=== PATIENT | female | born 1980 | race Caucasian/White ===

== ENCOUNTER 2023-11-30 15:59 | Inpatient (IN) | payer OTHER ==
[2023-11-30 17:22] LABS: BASO % 0.2 % (0-2.0); EOS % 0.3 % (0-4.5); HEMATOCRIT 33.5 % (32.4-45.2); HEMOGLOBIN 11.5 GM/dL (10.7-15.3); LYMPH % 18.3 % (8-40); MCH 29.2 pg (25.7-33.7); MCHC 34.2 g/dl (32.0-36.0); MEAN CELL VOLUME 85.4 fl (80-96); MEAN PLT VOLUME 8.4 fl (7.5-11.1); MONO % 5.9 % (3.8-10.2); NEUT % 75.3 % (42.8-82.8); PLATELET COUNT 365 10^3/uL (134-434); RBC 3.92 M/mm3 (3.60-5.2); RDW 13.4 % (11.6-15.6); WHITE BLOOD COUNT 12.5 K/mm3 (4.0-10.0)
[2023-11-30 17:28] LABS: INR 0.94 (0.83-1.09); PROTHROMBIN TIME (PATIENT) 10.6 SEC (9.7-13.0)
[2023-11-30 17:31] LABS: ACTIVATED PTT 27.5 SECONDS (25.2-36.5)
[2023-11-30 17:40] LABS: POTASSIUM 3.8 mmol/L (3.5-5.1)
[2023-11-30 17:42] LABS: CALCIUM 9.4 mg/dL (8.5-10.1)
[2023-11-30 17:43] LABS: ALBUMIN 2.6 g/dl (3.4-5.0); BLOOD UREA NITROGEN 9.8 mg/dL (7-18)
[2023-11-30 17:46] LABS: CREATININE 0.4 mg/dL (0.55-1.3); URIC ACID 4.3 mg/dL (2.6-7.2)
[2023-11-30 17:48] LABS: BILIRUBIN,TOTAL 0.2 mg/dL (0.2-1); TOT PROT 6.6 g/dl (6.4-8.2)
[2023-11-30 19:08] VITALS: BMI 34.7
[2023-11-30 19:57] LABS: EPI CELLS 15 /uL (0-25.1); HYALINE CASTS 0 /uL (0-3.1); PH,URINE 6.5 (5.0-8.0); URINE APPEARANCE CLEAR; URINE BACTERIA 352 /uL (0-1359); URINE BILIRUBIN NEGATIVE (NEGATIVE); URINE COLOR YELLOW; URINE GLUCOSE (UA) NEGATIVE (NEGATIVE); URINE KETONE TRACE (NEGATIVE); URINE LEUK ESTERASE NEGATIVE (NEGATIVE); URINE NITRITE NEGATIVE (NEGATIVE); URINE PROTEIN 1+ (NEGATIVE); URINE RBC 7 /uL (0-23.9); URINE WBC 7 /uL (0-25.8)
[2023-11-30] MEDS ORDERED: ELECTROLYTE-148 SOLN 1,000 ML IV SCH (20:15)
[2023-11-30] MEDS ORDERED: morphine SULFATE/PF 1 MG/2 ML (2cc Syringe - QUVA) ONE (20:22)
[2023-11-30] MEDS ORDERED: ePHEDrine SULFATE 50 MG/1 ML AMPULE ONE (20:41)
[2023-11-30] MEDS ORDERED: FENTANYL CITRATE/PF 50 MCG/ML VIAL ONE (21:32)
[2023-11-30 21:48] LABS: CORD BASE EXCESS -10.5 mmol/L (0-2); CORD HCO3 17.6 mmHg (20-29); CORD PCO2 47.2 mmHg (30-78); CORD pH 7.189 (7.14-7.44)
[2023-11-30] MEDS ORDERED: BENZOCAINE 20% 57 GM BOTTLE TP PRN (22:01)
[2023-11-30] MEDS ORDERED: BENZOCAINE 28 GM HEMORRHOIDAL OINTMENT TP PRN (22:01)
[2023-11-30] MEDS ORDERED: WITCH HAZEL 50% (TUCKS) 40 PAD/JAR PAD TP PRN (22:01)
[2023-11-30] MEDS ORDERED: METHYLERGONOVINE MALEATE 0.2 MG/1 ML AMP IM PRN (22:01)
[2023-11-30] MEDS ORDERED: ONDANSETRON 4 MG/2 ML VIAL ONE (23:03)
[2023-11-30] MEDS: ONDANSETRON 4 MG/2 ML VIAL IVPUSH PRN (23:06)
[2023-11-30] MEDS ORDERED: OXYTOCIN 20 UNITS in 0.9% NS 20 UNIT/1,000 ML INFUS.BAG IV ONE (23:07)
[2023-11-30] MEDS ORDERED: IBUPROFEN 800 MG/8 ML IJ IVPB ONE (23:07)
[2023-11-30] MEDS: IBUPROFEN 800 MG/8 ML IJ IVPB PRN (23:10)
[2023-11-30] MEDS: OXYTOCIN 20 UNITS in 0.9% NS 20 UNIT/1,000 ML INFUS.BAG IV SCH (23:12)
[2023-12-01] MEDS ORDERED: oxyCODONE HCL 5 MG TABLET ONE (01:24)
[2023-12-01] MEDS: SIMETHICONE 80 MG TAB.CHEW (FP) PO PRN (01:28)
[2023-12-01] MEDS: oxyCODONE HCL 5 MG TABLET PO PRN (01:31)
[2023-12-01 07:48] LABS: BASO % 0.1 % (0-2.0); EOS % 0.1 % (0-4.5); HEMOGLOBIN 11.3 GM/dL (10.7-15.3); LYMPH % 7.5 % (8-40); MCH 29.2 pg (25.7-33.7); MCHC 34.3 g/dl (32.0-36.0); MEAN CELL VOLUME 85.2 fl (80-96); MEAN PLT VOLUME 8.6 fl (7.5-11.1); MONO % 4.5 % (3.8-10.2); NEUT % 87.8 % (42.8-82.8); PLATELET COUNT 301 10^3/uL (134-434); RBC 3.88 M/mm3 (3.60-5.2); RDW 13.2 % (11.6-15.6); WHITE BLOOD COUNT 18.3 K/mm3 (4.0-10.0)
[2023-12-01] MEDS: morphine SULFATE/PF 1 MG/2 ML (2cc Syringe - QUVA) EP ONE (09:41)
[2023-12-01] MEDS: ENOXAPARIN NA (PORCINE) 40 MG/0.4 ML DISP.SYRIN SQ SCH (09:42)
[2023-12-01] MEDS: PRENATAL VITAMINS W/ FOLIC ACID TABLET (FP) PO SCH (09:42)
[2023-12-01] MEDS ORDERED: oxyCODONE HCL 5 MG TABLET PO PRN (10:01)
[2023-12-01] MEDS: ACETAMINOPHEN 325 MG TABLET (FP) PO PRN (11:00)
[2023-12-01] MEDS: PANTOPRAZOLE 20 MG TABLET PO SCH (11:39)
[2023-12-01] MEDS: KETOROLAC TROMETHAMINE 30 MG/1 ML VIAL IM PRN (11:40)
[2023-12-01] MEDS: diphenhydrAMINE HCL 25 MG CAPSULE (FP) PO ONE (16:43)
[2023-12-01] MEDS: SENNOSIDES/DOCUSATE COMBO (SENNA PLUS) TABLET (UD) PO PRN (22:04)
[2023-12-01] MEDS: diphenhydrAMINE HCL 25 MG CAPSULE (FP) PO PRN (22:04)
[2023-12-02] MEDS: IBUPROFEN 600 MG TABLET (FP) PO PRN (14:11)
[2023-12-02] MEDS: BISACODYL 10 MG SUPP.RECT RC PRN (14:15)
[2023-12-02 19:19] VITALS: RESP 18
[2023-12-03 08:39] LABS: BASO % 0.2 % (0-2.0); EOS % 0.9 % (0-4.5); HEMATOCRIT 30.8 % (32.4-45.2); HEMOGLOBIN 10.7 GM/dL (10.7-15.3); LYMPH % 16.8 % (8-40); MCH 30.3 pg (25.7-33.7); MCHC 34.8 g/dl (32.0-36.0); MEAN CELL VOLUME 87.1 fl (80-96); MEAN PLT VOLUME 8.5 fl (7.5-11.1); MONO % 6.4 % (3.8-10.2); NEUT % 75.7 % (42.8-82.8); PLATELET COUNT 311 10^3/uL (134-434); RBC 3.53 M/mm3 (3.60-5.2); RDW 13.5 % (11.6-15.6); WHITE BLOOD COUNT 9.1 K/mm3 (4.0-10.0)
[2023-12-03 09:43] VITALS: BP 119/78; PULSE 90; TEMP 98.7
== END 2023-12-03 11:50 | disposition home or self-care (01) | DRG 540 ==
LOC: JDEL 15:59 → JLDR 18:15 → J3W 12-01 00:30
PROVIDERS: ADMIT Obstetrics & Gynecology; ATTEND Obstetrics & Gynecology
PROC: 10D00Z1 Extraction of Products of Conception, Low, Open Approach (ICD-10-PCS; principal; 2023-11-30)
DX: O34.211 Maternal care for low transverse scar from previous cesarean delivery (principal); O14.04 Mild to moderate pre-eclampsia, complicating childbirth; Z3A.37 37 weeks gestation of pregnancy; Z37.0 Single live birth
CPT/HCPCS: 36415; 36600; 59025; 76805-TC; 76819-TC; 80053; 81003; 82570; 82803; 84156; 84550; 85025; 85610; 85730; 86780; 86850; 86900; 86901; 88307-TC; 94010; G0463-25